=== PATIENT | female | born 1975 | race Caucasian/White ===

== ENCOUNTER → 2018-11-25 11:57 | Outpatient (CLI) | payer BC, SELFPAY ==
[2018-11-25 18:39] LABS: Rubella Antibody IgG 21.7 IU/mL (>15)
[2018-11-27 13:55] LABS: Varicella IgG Antibody < 135.00 Index (< 135.00)
[2018-11-28 11:38] LABS: Rubeola Measles IgG < 25.00 AU/mL (< 25.00)
== END ==
PROVIDERS: PCP Family Medicine; Visit Provider Family Medicine
DX: Z01.84 Encounter for antibody response examination (principal)
CPT/HCPCS: 36415; 86735; 86762; 86765; 86787

== ENCOUNTER → 2019-02-16 10:36 | Outpatient (CLI) | payer BC, SELFPAY | PROVIDERS: PCP Family Medicine | DX: Z23 Encounter for immunization (principal) | CPT/HCPCS: 90471; 90686 ==

== ENCOUNTER → 2020-02-03 14:26 | Outpatient (CLI) | payer BC, SELFPAY | PROVIDERS: PCP Family Medicine; Referring Provider Internal Medicine; Visit Provider Internal Medicine | DX: Z23 Encounter for immunization (principal) | CPT/HCPCS: 90471; 90686 ==

== ENCOUNTER → 2020-03-29 11:33 | Outpatient (CLI) | payer BC, SELFPAY ==
[2020-03-29 13:03] LABS: Alanine Aminotransferase 19 IU/L (<35); Albumin 4.5 g/dL (3.5-5.0); Albumin Globulin Ratio 1.5 (1.0-2.8); Alkaline Phosphatase 56 U/L (38-126); Aspartate Aminotransferase 24 IU/L (14-36); BUN Creatinine Ratio 23.9 (6-22); Bilirubin Total 0.4 mg/dL (0.2-1.3); Blood Urea Nitrogen 16 mg/dL (7-17); Calcium 9.1 mg/dL (8.4-10.2); Carbon Dioxide 28 mmol/L (22-32); Chloride 105 mmol/L (98-107); Cholesterol 196 mg/dL (140-199); Estimated Glomerular Filt Rate > 60.0 mL/min (>60); Globulin 3.1 g/dL (1.7-4.1); Glucose 87 mg/dL (70-100); HDL Cholesterol 50 mg/dL (40-60); HEMOLYSIS < 15 (0-50); LDL Cholesterol Calculated 133 mg/dL (<100); Potassium 4.1 mmol/L (3.4-5.1); Sodium 138 mmol/L (137-145); Total Protein 7.6 g/dL (6.3-8.2); Triglycerides 66 mg/dL (35-150)
[2020-03-29 13:05] LABS: Hemoglobin A1C% w Est Avg Glu 5.7 % (4.0-6.0)
[2020-03-29 13:49] LABS: TSH w/ Reflex to FT4 1.23 uIU/mL (0.47-4.68)
[2020-04-03 15:07] LABS: QuantiFERON Mitogen Value 5.65 IU/mL (.); QuantiFERON Nil Value 0.14 IU/mL (.); QuantiFERON TB Gold Plus Negative (Negative); QuantiFERON TB1 Ag Value 0.14 IU/mL (.); QuantiFERON TB2 Ag Value 0.14 IU/mL (.)
== END ==
PROVIDERS: PCP Family Medicine; Referring Provider Family Medicine; Visit Provider Family Medicine
DX: I10 Essential (primary) hypertension (principal); E03.9 Hypothyroidism, unspecified; O24.419 Gestational diabetes mellitus in pregnancy, unspecified control; Z11.1 Encounter for screening for respiratory tuberculosis; E78.5 Hyperlipidemia, unspecified
CPT/HCPCS: 36415; 80053; 80061; 83036; 84443; 86480

== ENCOUNTER → 2022-03-02 18:26 | Outpatient (CLI) | payer BC, SELFPAY | PROVIDERS: Visit Provider Registered Nurse | DX: J02.9 Acute pharyngitis, unspecified (principal) | CPT/HCPCS: 87070 ==

== ENCOUNTER → 2022-05-31 15:38 | Outpatient (CLI) | payer BC, SELFPAY ==
--- NOTE | 2022-05-31 15:40 | DI.MG.S_ITS ---
BILATERAL DIGITAL SCREENING MAMMOGRAM 3D/2D WITH CAD: 05/31/2022 CLINICAL: Routine screening. Comparison is made to exam dated: 03/13/2020 mammogram - [facility]. Both breasts are heterogeneously dense, which may obscure small masses (category c / 51-75% glandular tissue). Current study was also evaluated with a Computer Aided Detection (CAD) system. There are benign calcifications in both breasts. No significant masses, calcifications, or other findings are seen in either breast. There has been no significant interval change. IMPRESSION: BENIGN There is no mammographic evidence of malignancy. A 1 year screening mammogram is recommended. This exam was interpreted at Station [facility]: [id number]. NOTE: For mammograms, a report in lay terms will be sent to the patient. Approximately 15% of breast malignancies will not be visualized mammographically. In the management of a palpable breast mass, a negative mammogram must not discourage biopsy of a clinically suspicious lesion. Electronically Signed By: Dennis frye/leslie:06/03/2022 01:31:52 letter sent: Normal Exam ACR BI-RADS Category 2: Benign Finding(s) 3342F
== END ==
PROVIDERS: Referring Provider Family Medicine; Visit Provider Family Medicine
DX: Z12.31 Encounter for screening mammogram for malignant neoplasm of breast (principal)
CPT/HCPCS: 77063; 77067

== ENCOUNTER → 2022-09-05 07:48 | Outpatient (CLI) | payer BC, SELFPAY ==
[2022-09-05 08:33] LABS: Add Manual Diff / Slide Review NO; Basophils Absolute Auto 0 /uL (0-100); Basophils Percent Auto 0.4 % (0-2); Eosinophils Absolute Auto 100 /uL (0-450); Eosinophils Percent Auto 1.7 % (2-4); Hematocrit 36.6 % (36-46); Hemoglobin 12.7 g/dL (12.0-16.0); Lymphocytes Absolute Auto 1600 /uL (1100-4500); Lymphocytes Percent Auto 20.9 % (25-40); Mean Corpuscular HGB Conc 34.7 % (30-36); Mean Corpuscular Hemoglobin 29.4 PG (26-34); Mean Corpuscular Volume 84.8 fL (80-100); Monocytes Absolute Auto 300 /uL (0-900); Monocytes Percent Auto 3.9 % (3-14); Neutrophils Absolute Auto 5500 /uL (1500-7000); Neutrophils Percent Auto 73.1 % (50-75); Platelet Count 288 X10^3/uL (150-400); Red Blood Cell Count 4.31 X10^6/uL (4.0-5.2); White Blood Cell Count 7.5 X10^3/uL (4.5-11.0)
[2022-09-05 09:15] LABS: Alanine Aminotransferase 16 IU/L (<35); Albumin 4.2 g/dL (3.5-5.0); Albumin Globulin Ratio 1.4 (1.0-2.8); Alkaline Phosphatase 55 U/L (38-126); Aspartate Aminotransferase 19 IU/L (14-36); BUN Creatinine Ratio 20.7 (6-22); Bilirubin Total 0.4 mg/dL (0.2-1.3); Blood Urea Nitrogen 17 mg/dL (7-17); Carbon Dioxide 30 mmol/L (22-32); Chloride 100 mmol/L (98-107); Cholesterol 200 mg/dL (140-199); Estimated Glomerular Filt Rate > 60 mL/min (>60); Glucose 96 mg/dL (70-100); HDL Cholesterol 53 mg/dL (40-60); HEMOLYSIS < 15 (0-50); LDL Cholesterol Calculated 134 mg/dL (<100); Potassium 3.7 mmol/L (3.4-5.1); Sodium 136 mmol/L (137-145); Total Protein 7.2 g/dL (6.3-8.2); Triglycerides 66 mg/dL (35-150)
[2022-09-05 09:42] LABS: Follicle Stimulating Hormone 4.02 mIU/mL
[2022-09-05 09:55] LABS: TSH w/ Reflex to FT4 1.72 uIU/mL (0.47-4.68)
[2022-09-06 05:14] LABS: x Labcorp Estim. Avg Glu (eAG) 120 mg/dL (.); x Labcorp Hemoglobin A1c 5.8 % (4.8-5.6)
== END ==
PROVIDERS: PCP Family Medicine; Referring Provider Family Medicine; Visit Provider Family Medicine
DX: E66.9 Obesity, unspecified (principal); E03.9 Hypothyroidism, unspecified; I10 Essential (primary) hypertension; N95.1 Menopausal and female climacteric states; Z82.49 Family history of ischemic heart disease and other diseases of the circulatory system
CPT/HCPCS: 36415; 80053; 80061; 83001; 83036; 84443; 85025

== ENCOUNTER → 2022-11-09 11:18 | Outpatient (CLI) | payer BC, SELFPAY ==
[2022-11-12 13:55] LABS: QuantiFERON Mitogen Value >10.00 IU/mL (.); QuantiFERON Nil Value 0.01 IU/mL (.); QuantiFERON TB Gold Plus Negative (Negative); QuantiFERON TB1 Ag Value 0.05 IU/mL (.); QuantiFERON TB2 Ag Value 0.05 IU/mL (.)
== END ==
PROVIDERS: PCP Family Medicine; Referring Provider Family Medicine; Visit Provider Family Medicine
DX: Z02.1 Encounter for pre-employment examination (principal)
CPT/HCPCS: 36415; 86480

== ENCOUNTER 2023-05-31 05:59 | Emergency (ER) | payer BC, SELFPAY ==
[2023-05-31] VITALS (10 sets, daily range): BP systolic 159–192; BP diastolic 84–107; PULSE 84–104; RESP 17–18; TEMP 36.6; O2SAT 97–100; BMI 28.3
[2023-05-31] MEDS: ONDANSETRON 4 MG/2 ML INJ IV (06:33)
[2023-05-31] MEDS: SODIUM CHLORIDE 0.9% 1,000 ML 1000 ML IV ×2 (06:33→07:44)
[2023-05-31 06:36] LABS: Add Manual Diff / Slide Review NO; Basophils Absolute Auto 0 /uL (0-100); Basophils Percent Auto 0.5 % (0-2); Eosinophils Absolute Auto 0 /uL (0-450); Eosinophils Percent Auto 0.2 % (2-4); Hematocrit 35.7 % (36-46); Hemoglobin 12.2 g/dL (12.0-16.0); Lymphocytes Absolute Auto 500 /uL (1100-4500); Lymphocytes Percent Auto 8.4 % (25-40); Mean Corpuscular HGB Conc 34.2 % (30-36); Mean Corpuscular Hemoglobin 29.1 PG (26-34); Mean Corpuscular Volume 85.1 fL (80-100); Monocytes Absolute Auto 400 /uL (0-900); Monocytes Percent Auto 7.8 % (3-14); Neutrophils Absolute Auto 4700 /uL (1500-7000); Neutrophils Percent Auto 83.1 % (50-75); Platelet Count 227 X10^3/uL (150-400); Red Cell Distribution Width 14.6 % (11.6-14.8); White Blood Cell Count 5.7 X10^3/uL (4.5-11.0)
--- NOTE | 2023-05-31 06:36 | ED.NAVMDI ---
HPI - Nausea/Vomiting/Diarrhea <Iesha Fiore MD - Last Filed: 06/03/23 22:18> General Chief complaint: Nausea/Vomiting/Diarrhea Stated complaint: cant keep anything down, fluds? Time Seen by Provider: 05/31/23 06:01 Source: patient Mode of arrival: Ambulatory History of Present Illness HPI Narrative: 47-year-old female presents for nausea and vomiting since yesterday. Patient states she was in her usual state of health however she began to feel chilled, feverish, with body aches. T-max 101?F measured at home. Tried to take sublingual Zofran at 11:00 p.m. last night but continued to vomit and was not able to take fluids or Tylenol down. Denies abdominal pain. Related Data Home Medications Medication Instructions Recorded Confirmed cholecalciferol (vitamin D3) 100 4,000 unit PO DAILY 12/18/17 09/12/22 mcg (4,000 unit) capsule levonorgestrel 21 mcg/24 hours (8 intrauterine 07/10/21 09/12/22 yrs) 52 mg intrauterine device (Mirena) Previous Rx's Medication Instructions Recorded levothyroxine 50 mcg tablet 50 mcg PO DAILY #90 tabs 09/12/22 lisinopril 20 mg tablet See Rx Instructions .Route 10/14/22 .COMPLEX #90 tabs bupropion HCl 150 mg 24 hr tablet, 150 mg PO QAM #90 tabs 10/15/22 extended release escitalopram oxalate 5 mg tablet 5 mg PO QDAY #90 tabs 04/10/23 (Lexapro) ondansetron 4 mg disintegrating 4 mg PO Q6H PRN nausea and 05/31/23 tablet vomiting #14 tabs Allergies Allergy/AdvReac Type Severity Reaction Status Date / Time Sulfa (Sulfonamide Allergy Mild SWOLLEN Verified 09/12/22 08:35 Antibiotics) LIPS/HIVES [SULFA (SULFONAMIDE ANTIBIOTICS)] CULTIVATED OAT POLLEN Allergy Mild Uncoded 09/12/22 08:35 Review of Systems <Iesha Fiore MD - Last Filed: 06/03/23 22:18> Review of Systems Narrative: Negative except as noted above Patient History <Iesha Fiore MD - Last Filed: 06/03/23 22:18> Medical History Hyperlipidemia Prediabetes Obesity (BMI 30.0-34.9) Family history of early CAD IUD (intrauterine device) in place Hayfever Depression (~2009) Anxiety (~2009) Basal cell carcinoma (~2004) Chicken pox (~1996) Gestational diabetes (~2007) Hypothyroidism (~2009) Foot pain (~2013) Heavy menstrual bleeding (~1995) Endometriosis (~1997) Hypertension (~2005) Surgical History Anesthesia Status post delivery (~2007) Status post delivery (~2005) Status post laparoscopy (~1998) History of third molar tooth extraction (~1993) Family History Father Age: 71 Hypertension Hypothyroidism Grandfather Age: 93 Heart disease Hypertension High cholesterol Grandmother Age: 89 Brain tumor Cancer Mother Age: 71 Heart disease Hypertension High cholesterol Hypothyroidism Sister Age: 45 Hypertension Anxiety Hypothyroidism Social History marital status: number of children: 2 household members: family lives independently: Yes occupational status: employed Smoking Status: Never smoker alcohol intake: current substance use type: does not use Smoking Status: Never smoker Substance Use Type: does not use Exam <Iesha Fiore MD - Last Filed: 06/03/23 22:18> Initial Vital Signs Initial Vital Signs: Vital Signs Temperature 98 F 05/31/23 06:05 Pulse Rate 103 H 05/31/23 06:05 Respiratory Rate 18 05/31/23 06:05 Blood Pressure 184/98 H 05/31/23 06:05 Pulse Oximetry 98 05/31/23 06:05 Oxygen Delivery Method Room Air 05/31/23 06:05 Const: Awake, alert, no acute distress, nontoxic appearing Cardiac: regular rate, regular rhythm RESP: unlabored, clear bilaterally, no wheezing GI: Atraumatic, soft, nontender Skin: Warm, Dry, intact, no rashes Neuro: AO x3, CN II-XII grossly intact, moves all extremities Psych: affect normal, mood normal, not suicidal, not homicidal <Bashir Jones DO - Last Filed: 05/31/23 08:34> Initial Vital Signs Initial Vital Signs: Vital Signs Temperature 98 F 05/31/23 06:05 Pulse Rate 103 H 05/31/23 06:05 Respiratory Rate 18 05/31/23 06:05 Blood Pressure 184/98 H 05/31/23 06:05 Pulse Oximetry 98 05/31/23 06:05 Oxygen Delivery Method Room Air 05/31/23 06:05 Course <Iesha Fiore MD - Last Filed: 06/03/23 22:18> Orders Ordered: Discontinued Medications Acetaminophen (Acetaminophen 325 Mg Tablet) 650 mg PO NOW ONE Stop: 05/31/23 07:39 Last Admin: 05/31/23 07:44 Dose: 650 mg Documented By: SPF Sodium Chloride (Normal Saline 0.9%) 1,000 mls @ 1,000 mls/hr IV BOLUS ONE Stop: 05/31/23 07:26 Last Infusion: 05/31/23 07:31 Dose: Infused Documented By: Admin: 05/31/23 06:33 Dose: 1,000 mls/hr Documented By: SEFERINO Sodium Chloride (Normal Saline 0.9%) 1,000 mls @ 1,000 mls/hr IV BOLUS ONE Stop: 05/31/23 08:37 Last Infusion: 05/31/23 08:30 Dose: Infused Documented By: Admin: 05/31/23 07:44 Dose: 1,000 mls/hr Documented By: PHILIPP Ondansetron HCl (Ondansetron 4 Mg/2 Ml Inj) 4 mg IV NOW ONE Stop: 05/31/23 06:28 Last Admin: 05/31/23 06:33 Dose: 4 mg Documented By: SEFERINO Vital Signs Vital signs: Vital Signs - 8 hr 05/31/23 06:05 05/31/23 06:15 05/31/23 06:16 Temperature 98 F Pulse Rate 103 H 104 H Respiratory Rate 18 Blood Pressure 184/98 H 175/107 H Pulse Oximetry 98 97 Oxygen Delivery Method Room Air Room Air 05/31/23 06:16 05/31/23 06:30 05/31/23 06:30 Temperature Pulse Rate 101 H 95 H Respiratory Rate Blood Pressure 159/94 H Pulse Oximetry 97 98 Oxygen Delivery Method Room Air Room Air 05/31/23 07:00 05/31/23 07:00 05/31/23 07:30 Temperature Pulse Rate 90 87 Respiratory Rate 17 Blood Pressure 169/91 H Pulse Oximetry 100 99 Oxygen Delivery Method Room Air Room Air 05/31/23 07:30 05/31/23 08:00 05/31/23 08:00 Temperature Pulse Rate 95 H Respiratory Rate Blood Pressure 168/92 H 192/84 H Pulse Oximetry 100 Oxygen Delivery Method Room Air 05/31/23 08:24 Temperature Pulse Rate 84 Respiratory Rate Blood Pressure Pulse Oximetry Oxygen Delivery Method <Bashir Jones DO - Last Filed: 05/31/23 08:34> Orders Ordered: Discontinued Medications Acetaminophen (Acetaminophen 325 Mg Tablet) 650 mg PO NOW ONE Stop: 05/31/23 07:39 Last Admin: 05/31/23 07:44 Dose: 650 mg Documented By: PHILIPP Sodium Chloride (Normal Saline 0.9%) 1,000 mls @ 1,000 mls/hr IV BOLUS ONE Stop: 05/31/23 07:26 Last Infusion: 05/31/23 07:31 Dose: Infused Documented By: Admin: 05/31/23 06:33 Dose: 1,000 mls/hr Documented By: SEFERINO Sodium Chloride (Normal Saline 0.9%) 1,000 mls @ 1,000 mls/hr IV BOLUS ONE Stop: 05/31/23 08:37 Last Infusion: 05/31/23 08:30 Dose: Infused Documented By: Admin: 05/31/23 07:44 Dose: 1,000 mls/hr Documented By: PHILIPP Ondansetron HCl (Ondansetron 4 Mg/2 Ml Inj) 4 mg IV NOW ONE Stop: 05/31/23 06:28 Last Admin: 05/31/23 06:33 Dose: 4 mg Documented By: SEFERINO Vital Signs Vital signs: Vital Signs - 8 hr 05/31/23 06:05 05/31/23 06:15 05/31/23 06:16 Temperature 98 F Pulse Rate 103 H 104 H Respiratory Rate 18 Blood Pressure 184/98 H 175/107 H Pulse Oximetry 98 97 Oxygen Delivery Method Room Air Room Air 05/31/23 06:16 05/31/23 06:30 05/31/23 06:30 Temperature Pulse Rate 101 H 95 H Respiratory Rate Blood Pressure 159/94 H Pulse Oximetry 97 98 Oxygen Delivery Method Room Air Room Air 05/31/23 07:00 05/31/23 07:00 05/31/23 07:30 Temperature Pulse Rate 90 87 Respiratory Rate 17 Blood Pressure 169/91 H Pulse Oximetry 100 99 Oxygen Delivery Method Room Air Room Air 05/31/23 07:30 05/31/23 08:00 05/31/23 08:00 Temperature Pulse Rate 95 H Respiratory Rate Blood Pressure 168/92 H 192/84 H Pulse Oximetry 100 Oxygen Delivery Method Room Air 05/31/23 08:24 Temperature Pulse Rate 84 Respiratory Rate Blood Pressure Pulse Oximetry Oxygen Delivery Method MDM - Nausea/Vomiting/Diarrhea <Iesha Fiore MD - Last Filed: 06/03/23 22:18> Differential Diagnosis Differential diagnosis: Likely traveler's diarrhea, food poisoning and gastroenteritis Lab Data 05/31/23 06:23 05/31/23 06:23 Labs: Lab Results 05/31/23 05/31/23 Range/Units 06:23 06:38 WBC 5.7 (4.5-11.0) X10^3/uL RBC 4.20 (4.0-5.2) X10^6/uL Hgb 12.2 (12.0-16.0) g/dL Hct 35.7 L (36-46) % MCV 85.1 (80-100) fL MCH 29.1 (26-34) PG MCHC 34.2 (30-36) % RDW 14.6 (11.6-14.8) % Plt Count 227 (150-400) X10^3/uL Neut % (Auto) 83.1 H (50-75) % Lymph % (Auto) 8.4 L (25-40) % [place] % (Auto) 7.8 (3-14) % Eos % (Auto) 0.2 L (2-4) % Baso % (Auto) 0.5 (0-2) % Neut # (Auto) 4700 (6633-4518) /uL Lymph # (Auto) 500 L (0424-9611) /uL [place] # (Auto) 400 (0-900) /uL Eos # (Auto) 0 (0-450) /uL Baso # (Auto) 0 (0-100) /uL Sodium 134 L (137-145) mmol/L Potassium 3.6 (3.4-5.1) mmol/L Chloride 99 (98-107) mmol/L Carbon Dioxide 26 (22-32) mmol/L BUN 4 L (7-17) mg/dL Creatinine 0.64 (0.52-1.04) mg/dL Estimated GFR > 60 (>60) mL/min BUN/Creatinine Ratio 6.3 (6-22) Glucose 106 H (70-100) mg/dL Calcium 9.2 (8.4-10.2) mg/dL Total Bilirubin 0.6 (0.2-1.3) mg/dL AST 20 (14-36) IU/L ALT 15 (<35) IU/L Alkaline Phosphatase 60 (38-126) U/L Total Protein 7.2 (6.3-8.2) g/dL Albumin 4.3 (3.5-5.0) g/dL Globulin 2.9 (1.7-4.1) g/dL Albumin/Globulin Ratio 1.5 (1.0-2.8) Lipase 43 (23-300) U/L SARS-CoV-2 (PCR) Positive H (Negative) Influenza A (RT-PCR) Flu a negative (NEGATIVE) Influenza B (RT-PCR) Flu b negative (NEGATIVE) RSV (PCR) Negative (Negative) Point of Care Testing Test Results Negative Urine Dip Bedside Urine Glucose Negative Bedside Urine Bilirubin - Negative Bedside Urine Ketone +/- 5 Urine Specific Roland 1.010 Bedside Urine Occult Blood - Negative Bedside Urine pH 7.5 Bedside Urine Protein - Negative Bedside Urine Urobilinogen - Negative Bedside Urine Nitrite - Negative Bedside Urine Leukocytes - Negative Esterase MDM Narrative Medical decision making narrative: Nausea and vomiting with generalized body aches since yesterday. Vital signs reviewed. Abdomen is soft, no reproducible tenderness to palpation. Based on patient's description of symptoms as well as onset this is likely viral in nature. We will swab for flu, COVID, RSV, we will order IV fluids and antiemetics, basic laboratory work. Care of patient to be signed out to daytime physician. <Bashir Jones DO - Last Filed: 05/31/23 08:34> Lab Data Labs: Lab Results 05/31/23 05/31/23 Range/Units 06:23 06:38 WBC 5.7 (4.5-11.0) X10^3/uL RBC 4.20 (4.0-5.2) X10^6/uL Hgb 12.2 (12.0-16.0) g/dL Hct 35.7 L (36-46) % MCV 85.1 (80-100) fL MCH 29.1 (26-34) PG MCHC 34.2 (30-36) % RDW 14.6 (11.6-14.8) % Plt Count 227 (150-400) X10^3/uL Neut % (Auto) 83.1 H (50-75) % Lymph % (Auto) 8.4 L (25-40) % [place] % (Auto) 7.8 (3-14) % Eos % (Auto) 0.2 L (2-4) % Baso % (Auto) 0.5 (0-2) % Neut # (Auto) 4700 (1041-1314) /uL Lymph # (Auto) 500 L (6622-5100) /uL [place] # (Auto) 400 (0-900) /uL Eos # (Auto) 0 (0-450) /uL Baso # (Auto) 0 (0-100) /uL Sodium 134 L (137-145) mmol/L Potassium 3.6 (3.4-5.1) mmol/L Chloride 99 (98-107) mmol/L Carbon Dioxide 26 (22-32) mmol/L BUN 4 L (7-17) mg/dL Creatinine 0.64 (0.52-1.04) mg/dL Estimated GFR > 60 (>60) mL/min BUN/Creatinine Ratio 6.3 (6-22) Glucose 106 H (70-100) mg/dL Calcium 9.2 (8.4-10.2) mg/dL Total Bilirubin 0.6 (0.2-1.3) mg/dL AST 20 (14-36) IU/L ALT 15 (<35) IU/L Alkaline Phosphatase 60 (38-126) U/L Total Protein 7.2 (6.3-8.2) g/dL Albumin 4.3 (3.5-5.0) g/dL Globulin 2.9 (1.7-4.1) g/dL Albumin/Globulin Ratio 1.5 (1.0-2.8) Lipase 43 (23-300) U/L SARS-CoV-2 (PCR) Positive H (Negative) Influenza A (RT-PCR) Flu a negative (NEGATIVE) Influenza B (RT-PCR) Flu b negative (NEGATIVE) RSV (PCR) Negative (Negative) Point of Care Testing Test Results Negative Urine Dip Bedside Urine Glucose Negative Bedside Urine Bilirubin - Negative Bedside Urine Ketone +/- 5 Urine Specific [place] 1.010 Bedside Urine Occult Blood - Negative Bedside Urine pH 7.5 Bedside Urine Protein - Negative Bedside Urine Urobilinogen - Negative Bedside Urine Nitrite - Negative Bedside Urine Leukocytes - Negative Esterase MDM Narrative Medical decision making narrative: Nausea and vomiting with generalized body aches since yesterday. Vital signs reviewed. Abdomen is soft, no reproducible tenderness to palpation. Based on patient's description of symptoms as well as onset this is likely viral in nature. We will swab for flu, COVID, RSV, we will order IV fluids and antiemetics, basic laboratory work. Care of patient to be signed out to daytime physician. Dr Jones: Received turned over. Reviewed patient's history and physical exam. After fluids patient states she is feeling much better. Is tolerating oral intake. Is COVID-19 positive. Started having symptoms yesterday. Not hypoxic. Not tachypneic. No respiratory distress. No indication for admission to the hospital. Did discuss these findings with the patient. Discussed quarantine. Discussed return precautions. Patient expressed understanding and agreement. Discharge Plan Departure Patient Disposition: Home Clinical Impression: COVID-19, Nausea and vomiting Instructions: Nausea and Vomiting-Adult, COVID-19 Activity Restrictions/Additional Instructions: Please follow all current CDC guidelines with regard to quarantine. Recommend a bland diet and focusing on drinking fluids for the next couple days. Use the nausea medication as needed. Return to the emergency department for new or worsening symptoms. Prescriptions: New ondansetron 4 mg tablet,disintegrating 4 mg PO Q6H PRN (Reason: nausea and vomiting) Qty: 14 0RF No Action Mirena 20 mcg/24 hours (7 yrs) 52 mg intrauterine device Intrauterine Patient Comments: Due out 03/2024 levothyroxine 50 mcg tablet 50 mcg PO DAILY Qty: 90 3RF lisinopril 20 mg tablet See Rx Instructions .ROUTE .COMPLEX Qty: 90 3RF Dose Instruction: TAKE 1 TABLET BY MOUTH EVERY DAY Rx Instructions: TAKE 1 TABLET BY MOUTH EVERY DAY bupropion HCl 150 mg tablet extended release 24 hr 150 mg PO QAM Qty: 90 3RF escitalopram oxalate [Lexapro] 5 mg tablet 5 mg PO QDAY Qty: 90 0RF cholecalciferol (vitamin D3) 4,000 unit capsule 4,000 unit PO DAILY Referrals: Jes Rod DO [Primary Care Provider] - Stand Alone Forms: Patient Portal/API
[2023-05-31 06:45] LABS: Alanine Aminotransferase 15 IU/L (<35); Albumin 4.3 g/dL (3.5-5.0); Albumin Globulin Ratio 1.5 (1.0-2.8); Alkaline Phosphatase 60 U/L (38-126); Aspartate Aminotransferase 20 IU/L (14-36); BUN Creatinine Ratio 6.3 (6-22); Bilirubin Total 0.6 mg/dL (0.2-1.3); Blood Urea Nitrogen 4 mg/dL (7-17); Calcium 9.2 mg/dL (8.4-10.2); Carbon Dioxide 26 mmol/L (22-32); Chloride 99 mmol/L (98-107); Estimated Glomerular Filt Rate > 60 mL/min (>60); Globulin 2.9 g/dL (1.7-4.1); Glucose 106 mg/dL (70-100); HEMOLYSIS < 15 (0-50); Lipase 43 U/L (23-300); Potassium 3.6 mmol/L (3.4-5.1); Sodium 134 mmol/L (137-145); Total Protein 7.2 g/dL (6.3-8.2)
[2023-05-31 07:19] LABS: Influenza A - CEPHEID Flu A NEGATIVE (NEGATIVE); Influenza B - CEPHEID Flu B NEGATIVE (NEGATIVE); Respiratory Syncytial Virus Negative (Negative)
[2023-05-31 07:44] LABS: COVID-19 CEPHEID 4-PLEX PCR POSITIVE (Negative)
[2023-05-31] MEDS: ACETAMINOPHEN 325 MG TABLET 650 MG PO (07:44)
--- NOTE | 2023-05-31 07:51 | PC.NURSE ---
Pt reports feeling much better after IV fluids and nausea medication (see MAR). Pt tolerating PO fluids and crackers now.
== END 2023-05-31 08:40 | disposition home or self-care (01) ==
PROVIDERS: Emergency Medicine; Emergency Provider Emergency Medicine; PCP Family Medicine
DX: U07.1 COVID-19 (principal); R11.2 Nausea with vomiting, unspecified
CPT/HCPCS: 0241U; 36415; 80053; 81003; 81025; 83690; 85025; 96361; 96374; 99284; J2405